=== PATIENT | female | born 1980 | race Caucasian/White ===

== ENCOUNTER 2019-12-24 16:48 | Emergency (ER) | payer OTHER ==
[~2019-12-24] VITALS: Ht 177.8 cm; Wt 65.8 kg
--- NOTE | 2019-12-24 17:15 | NUR ---
PATIENT A/OX4, CAME IN BECAUSE SHE GOT KICKED OUT OF THE DETOX FACILITY, ADMITTED TO DRUG USE THIS AM. NOTED TO BE RESTLESS AND DISHEVELED. KEPT COMFORTABLE. NEEDS ATTENDED.
--- NOTE | 2019-12-24 17:20 | NUR ---
PATIENT SEEN BY RECREATION MANAGER. RESOURCES PROVIDED.
[2019-12-24] MEDS ORDERED: LORAZEPAM 0.5 MG TABLET ONE (17:21)
[2019-12-24] MEDS ORDERED: IBUPROFEN 600 MG TABLET PO ONE ×2 (17:21→17:30)
--- NOTE | 2019-12-24 17:26 | NUR ---
Social service consult requested by MD for methamphetamine use and homelessness. Per MD notes, pt is a 39-year-old female presenting for agitation and methamphetamine addiction. The patient was sent from her detox facility for "medical clearance". She states she cannot be accepted into the facility until tomorrow and wants to sleep in the emergency department. [employer] REPRESENTATIVE met with the pt bedside. Pt. is alert and oriented x 4. Pt has her luggage bedside. Pt has wounds all over her body and face. Pt. appears disheveled. Pt. is homeless. Pt reports that she was kicked out of her sober living in [place] and has been staying with friends. Pt was suppose to check in today to [facility] for their detox program but showed up high on methamphetamines. Pt. states that she smoked a lot of methamphetamines and heroin this am. Pt is still withdrawing from the drugs. Pt stated she was 7 months sober and starting using heavily for the past three weeks while staying at a friend's house that had a lot of drugs. Pt is interested in going back to [facility] once she is sober. Pt will be discharged to homeless longterm or Detox program if accepted. [employer] REPRESENTATIVE is available, if needed.
[2019-12-24] MEDS ORDERED: LORAZEPAM 0.5 MG TABLET PO ONE (17:30)
--- NOTE | 2019-12-24 17:42 | NUR ---
Patient given written and verbal discharge instructions. Patient verbalizes understanding of instructions. Patient is ambulatory with steady gait. Patient will be discharged to waiting room, pending correction placement. Tap card provided and food provided.
[2019-12-24 17:44] VITALS: BP 149/74
== END 2019-12-24 17:45 | disposition home or self-care (01) ==
LOC: ER 16:51
DX: F15.20 Other stimulant dependence, uncomplicated (principal); L97.929 Non-pressure chronic ulcer of unspecified part of left lower leg with unspecified severity; L97.919 Non-pressure chronic ulcer of unspecified part of right lower leg with unspecified severity; L98.491 Non-pressure chronic ulcer of skin of other sites limited to breakdown of skin; F41.9 Anxiety disorder, unspecified

== ENCOUNTER 2020-10-19 10:49 | Emergency (ER) | payer MEDICAID, OTHER ==
[~2020-10-19] VITALS: Ht 167.6 cm; Wt 70.3 kg
[2020-10-19 11:02] VITALS: BP 144/90
--- NOTE | 2020-10-19 11:40 | NUR ---
covid swab done and sent to lab
== END 2020-10-19 11:40 | disposition home or self-care (01) ==
LOC: ER 10:58
DX: U07.1 COVID-19 (principal); R50.9 Fever, unspecified; M79.10 Myalgia, unspecified site; R00.0 Tachycardia, unspecified
CPT/HCPCS: 87804; 99283; C9803; U0003